=== PATIENT | male | born 1975 | race Caucasian/White ===

== ENCOUNTER 2020-03-28 12:45 | Emergency (ER) | payer OTHER, SELFPAY ==
--- NOTE | ~2020-03-28 | XR_ITS ---
EXAMINATION: XR chest 2V 03/28/2020 14:06 INDICATION: Cough for 5 weeks. Diminished breath sounds. PROCEDURE: 2 view chest COMPARISON: Comparison to multiple prior studies sequentially, with oldest reviewed study dated 04/30. FINDINGS: The lungs are clear. The cardiomediastinal silhouette is within normal limits. There are no pleural effusions. There is no pneumothorax suspected. IMPRESSION: 1: NO ACUTE CARDIOPULMONARY DISEASE. Reviewed, dictated and finalized at location A. [employer]
[2020-03-28 13:15] VITALS: BP 137/97; PULSE 79; RESP 16; TEMP 36.6; O2SAT 97
--- NOTE | 2020-03-28 13:31 | ED.URI ---
HPI - URI/Sore Throat General Chief Complaint: Upper Respiratory Infection Stated Complaint: COVID Symptoms Time Seen by Provider: 03/28/20 13:35 Source: patient and RN notes reviewed Mode of arrival: ambulatory Limitations: no limitations History of Present Illness HPI Narrative: 44 year old male who presents to [facility] care with complaints of intermittent cough with sinus drainage and congestion for 5 weeks. Patient states that he has been taking Mucinex for his symptoms. Patient states that for the past 4 days he has been having increase cough with shortness of breath and expectoration of yellow green mucous. Patient had cardiac stent done in 2916 100% on RCA and states that he hasn't been taking Plavix for a 1 1/2 months because he has not been able to see his principal accounts clerk or PCP. Patient states that he has not had a known fever but he has been having chills and sweats. Patient states that he hasn't been sleeping well due to cough. MD elicited complaint: cough, sore throat and rhinorrhea Pertinent past history: asthma (as child) and other (heart stent and tobacco abuse) Onset (ago): week(s) (5 weeks ago with increase symptoms for past 4 days) Consistency: progressively worsening Related Data Home Medications Medication Instructions Recorded Confirmed carvedilol [Coreg] 12.5 mg PO BID 03/28/20 03/28/20 clopidogrel [Plavix] 75 mg PO DAILY 03/28/20 03/28/20 omeprazole 20 mg PO DAILY 03/28/20 03/28/20 Allergies Allergy/AdvReac Type Severity Reaction Status Date / Time propoxyphene Allergy Mild Other Verified 03/28/20 13:19 Quinolones Allergy Unknown Other Verified 03/28/20 13:19 POTASSIUM CLAVULANATE Allergy Mild Other Uncoded 03/28/20 13:19 IBUPROFEN (Generic Allergy) Allergy Unknown Other Uncoded 03/28/20 13:19 SULFAMETHOXAZOLE (Generic Allergy Unknown Hives Uncoded 03/28/20 13:19 Allergy) Review of Systems Review of Systems: Narrative: CONSTITUTIONAL: Unsure if fever, positive chills, or sweats. EYES: Denies visual changes, redness, or discharge. ENT: Positive rhinorrhea, congestion, sore throat, no otalgia. CARDIOVASCULAR: Denies chest pain, palpitations, or edema. RESPIRATORY: Positive cough or dyspnea, chest hurts with cough GASTROINTESTINAL: Denies abdominal pain, nausea, vomiting, or diarrhea. GENITOURINARY: Denies dysuria or hematuria. SKIN: Denies rash or itching. MUSCULOSKELETAL: Denies back pain, joint pain, or myalgia. NEUROLOGIC: Denies headache, numbness, or weakness. PSYCHIATRIC: Denies anxiety or depression. All systems reviewed & are unremarkable except as noted in HPI and below PMFSH Past Medical History Medical History (Updated 03/28/20 @ 14:38 by Meryl Costa NP) Asthma as child CAD (coronary artery disease) Right hand fracture Surgical History Surgical History (Updated 03/28/20 @ 13:39 by Meryl Costa NP) H/O heart artery stent RCA Hx of cholecystectomy Family History Family History (Updated 03/28/20 @ 13:43 by Meryl Costa NP) Father , multiple myeloma tonsil cancer No problems noted. Mother Hypertension Social History Social History (Updated 03/28/20 @ 13:37 by Meryl Costa NP) Smoking status: Current every day smoker Tobacco type: cigarettes Alcohol intake: current Alcohol use details: social Substance use: never Living arrangements: with family Gender identity (if verbalized by the patient): Male Comments At time of signature, agree with nursing past medical, surgical, social and family history. There is no relevant family history pertinent to the presenting complaint Exam Narrative: Exam Narrative: GENERAL: Well-appearing, well-nourished, and in no acute distress. HEAD: Normocephalic, atraumatic. EYES: PERRLA and EOMI. ENT: Nares red, yellow rhinorrhea no epistaxis. Mucous membranes moist.TM's normal with good light reflex, throat red with no lesions or exudates no tonsil enlargement with nasal draina
[2020-03-28 13:37] VITALS: BP 137/97; PULSE 79; RESP 16; TEMP 36.6; O2SAT 97
== END 2020-03-28 14:33 | disposition home or self-care (01) ==
PROVIDERS: Emergency Provider Registered Nurse; PCP Physician Assistant
DX: R05 Cough (principal); J06.9 Acute upper respiratory infection, unspecified; Z20.822 Contact with and (suspected) exposure to COVID-19; F17.210 Nicotine dependence, cigarettes, uncomplicated; I25.10 Atherosclerotic heart disease of native coronary artery without angina pectoris; Z79.01 Long term (current) use of anticoagulants; Z95.5 Presence of coronary angioplasty implant and graft
CPT/HCPCS: 71046; 87081; 87426; 87804; 87880; 99203; C9803; G0463

== ENCOUNTER 2020-07-28 18:57 | Emergency (ER) | payer OTHER, SELFPAY ==
[2020-07-28 19:00] VITALS: BP 136/96; PULSE 94; RESP 18; TEMP 37.8; O2SAT 100
--- NOTE | 2020-07-28 19:06 | ED.MALEGU ---
HPI - Male Genitourinary General Chief complaint: Urogenital-Male Stated complaint: poss bladder infection Time Seen by Provider: 07/28/20 19:06 Source: patient and RN notes reviewed History of Present Illness HPI Narrative: Patient is a 45-year-old male who presents the urgent care with complaints of burning with urination and right-sided low back pain. Patient states that it started on Tuesday and seems to have worsened. Patient denies of any fever, chills, nausea, vomiting, abdominal pain. Patient has not taken anything [id number] for his symptoms. No other acute complaints. No acute distress noted. Patient aware of the plan of care. Some parts of this dictation were generated by voice recognition software and may contain typographical and/or grammatical inaccuracies. Related Data Home Medications Medication Instructions Recorded Confirmed carvedilol [Coreg] 12.5 mg PO BID 03/28/20 03/28/20 omeprazole 20 mg PO DAILY 03/28/20 03/28/20 Allergies Allergy/AdvReac Type Severity Reaction Status Date / Time propoxyphene Allergy Mild Other Verified 07/28/20 19:09 Quinolones Allergy Unknown Other Verified 07/28/20 19:09 POTASSIUM CLAVULANATE Allergy Mild Other Uncoded 07/28/20 19:09 SULFAMETHOXAZOLE (Generic Allergy Unknown Hives Uncoded 07/28/20 19:09 Allergy) Review of Systems Review of Systems: Narrative: CONSTITUTIONAL: Denies fever, chills, or sweats. EYES: Denies visual changes, redness, or discharge. ENT: Denies rhinorrhea, congestion, sore throat, or otalgia. CARDIOVASCULAR: Denies chest pain, palpitations, or edema. RESPIRATORY: Denies cough or dyspnea. GASTROINTESTINAL: Denies abdominal pain, nausea, vomiting, or diarrhea. GENITOURINARY: Reports of dysuria SKIN: Denies rash or itching. MUSCULOSKELETAL: Reports of right-sided low back pain NEUROLOGIC: Denies headache, numbness, or weakness. All other systems reviewed are negative, except as documented in HPI. [facility] Past Medical History Medical History (Updated 07/28/20 @ 19:21 by FELIPE June) Asthma as child CAD (coronary artery disease) Right hand fracture Surgical History Surgical History (Updated 03/28/20 @ 13:39 by Meryl Costa NP) H/O heart artery stent RCA Hx of cholecystectomy Family History Family History (Updated 03/28/20 @ 13:43 by Meryl Costa NP) Father , multiple myeloma tonsil cancer No problems noted. Mother Hypertension Social History Social History (Updated 03/28/20 @ 13:37 by Meryl Costa NP) Smoking status: Current every day smoker Tobacco type: cigarettes Alcohol intake: current Substance use: never Gender identity (if verbalized by the patient): Male Comments At the time of my signature, I reviewed and agree with the nursing past medical, surgical, social, and family history. There is no relevant family history pertinent to the patient complaint. Exam Narrative: Exam Narrative: GENERAL: This is a well-nourished, well-developed patient, in no apparent distress. HEAD: normocephalic, atraumatic. EYES: PERRL. Sclera clear/white. Vision is grossly intact. EARS: External ears normal NOSE: External nose normal with no obvious nasal discharge, nares without redness, no rhinorrhea. THROAT: Mucous membranes moist NECK: Neck supple CARDIOVASCULAR: Regular rate and rhythm without murmurs, gallops, or rubs. RESPIRATORY: Clear to auscultation. Breath sounds equal bilaterally. No wheezes, rales, or rhonchi. GASTROINTESTINAL: Abdomen soft, non-tender, nondistended. SKIN: warm, intact with no suspicious lesions or rash, good texture and turgor. NEURO: awake, alert, and oriented to person, place and time. There were no obvious focal neurologic abnormalities. EXTREMITIES: No clubbing, cyanosis, or edema. BACK: Mild right-sided CVA tenderness Course Vital Signs Vital signs: Vital Signs Temperature 100.1 F H 07/28/20 19:00 Pulse Rate 94 05/10
--- NOTE | 2020-07-28 19:26 | PC.NURSE ---
NO URINE CULTURE PER PROVIDER.
== END 2020-07-28 19:25 | disposition home or self-care (01) ==
PROVIDERS: Emergency Provider Nurse Practitioner Family
DX: R30.0 Dysuria (principal); F17.210 Nicotine dependence, cigarettes, uncomplicated; I25.10 Atherosclerotic heart disease of native coronary artery without angina pectoris; Z95.5 Presence of coronary angioplasty implant and graft
CPT/HCPCS: 81003; 99212; G0463

== ENCOUNTER 2021-10-18 21:02 | Emergency (ER) | payer OTHER, SELFPAY ==
[2021-10-18 21:05] VITALS: BP 100/62; PULSE 80; RESP 22; TEMP 36.4; O2SAT 95
--- NOTE | 2021-10-18 21:15 | ECG_ITS ---
Measurements Intervals [place] Rate: 78 P: 19 HI: 175 QRS: -16 QRSD: 103 T: -1 QT: 393 QTc: 449 Interpretive Statements SINUS RHYTHM LOW QRS VOLTAGE IN PRECORDIAL LEADS BORDERLINE R WAVE PROGRESSION, ANTERIOR LEADS CONSIDER INFERIOR INFARCT, AGE INDETERMINATE ABNORMAL ECG Electronically Signed On 10-18-2021 21:53:25 CDT by Andriy Agarwal D.O.
--- NOTE | 2021-10-18 21:16 | ED.WEAKNESS ---
HPI - Weakness General Chief complaint: Weakness Stated complaint: homeless diarrhea and dizzy x 2 days Time Seen by Provider: 10/18/21 21:08 History of Present Illness HPI Narrative: Patient is a 46-year-old male brought in by EMS due to near syncopal episode after a bowel movement. Patient was at a gas station using the restroom. Patient states that he has been feeling weak the past few days due to having diarrhea, loose watery, nonbloody, which he attributes to his IBS. Patient denies any syncopal episode. Patient was given IV fluids by EMS and now states that he is feeling better. Denies dizziness, headache, focal weakness or numbness, chest pain, shortness of breath, abdominal pain, nausea, vomiting, fever or chills. Related Data Home Medications Medication Instructions Recorded Confirmed carvedilol 12.5 mg tablet (Coreg) 12.5 mg PO BID 03/28/20 07/28/20 omeprazole 20 mg capsule,delayed 20 mg PO DAILY 03/28/20 07/28/20 release Allergies Allergy/AdvReac Type Severity Reaction Status Date / Time propoxyphene Allergy Mild Other Verified 10/18/21 21:05 Quinolones Allergy Unknown Other Verified 10/18/21 21:05 POTASSIUM CLAVULANATE Allergy Mild Other Uncoded 07/28/20 19:09 SULFAMETHOXAZOLE (Generic Allergy Unknown Hives Uncoded 07/28/20 19:09 Allergy) Review of Systems Review of Systems: All systems reviewed & are unremarkable except as noted in HPI and below Constitutional: Constitutional: Denies body ache(s), Denies chills, Denies excessive sweating, Denies fatigue, Denies fever(s), Denies headache(s), Denies lethargy, Denies malaise and Denies weight loss Eyes: Eyes: Denies blurry vision, Denies change in vision and Denies loss of vision ENT: Denies dizziness, Denies ear discharge, Denies headache(s), Denies lip swelling, Denies epistaxis, Denies nasal congestion, Denies neck pain, Denies throat swelling and Denies tongue swelling Cardiovascular: Cardiovascular: Denies chest pain, Denies chest pain at rest, Denies chest pain with activity, Denies diaphoresis, Denies rapid heart rate, Denies edema, Denies irregular heart rhythm, Denies lightheadedness, Denies palpitations, Denies dyspnea and Denies dyspnea on exertion Respiratory: Respiratory: Denies chest congestion, Denies cough, Denies hemoptysis, Denies dyspnea and Denies dyspnea on exertion Gastrointestinal: Gastrointestinal: Denies abdominal pain, Denies melena, Denies hematochezia, Denies nausea, Denies vomiting and Denies hematemesis Musculoskeletal: Musculoskeletal: Denies abnormal gait, Denies deformity, Denies joint swelling, Denies limited range of motion, Denies neck pain and Denies numbness Neurologic: Denies Abnormal speech present, Denies abnormal gait, Denies confusion, Denies dizziness, Denies headache(s), Denies focal weakness, Denies loss of vision, Denies numbness, Denies Other visual disturbances and Denies Sensory deficit (Neuro) Psychiatric: Psychiatric: Denies confusion, Denies depression, Denies auditory hallucinations, Denies homicidal ideation and Denies suicidal ideation Endocrine: Endocrine: Denies cold intolerance, Denies excessive sweating, Denies fatigue, Denies heat intolerance and Denies palpitations Hematologic/Lymphatic: Hematologic/Lymphatic: Denies easy bleeding and Denies easy bruising Allergic/Immunologic: Allergic/Immunologic: Denies lip swelling, Denies throat swelling and Denies tongue swelling PMFSH Past Medical History Medical History Asthma as child CAD (coronary artery disease) Right hand fracture Surgical History Surgical History H/O heart artery stent RCA Hx of cholecystectomy Family History Family History Father , multiple myeloma tonsil cancer No problems noted. Mother Hypertension Social History Social His
--- NOTE | 2021-10-18 21:20 | PC.NURSE ---
1L IV NS bolus and 1L IV LR bolus continued in ED, initiated by EMS. Full amount to be infused, per [facility] EDP Mona.
[2021-10-18 21:47] LABS: Basophils Percent Auto 0.2 % (0.2-1.2); Eosinophils Percent Auto 0.3 % (0-4.4); Hematocrit 35.7 % (42.0-52.0); Hemoglobin 12.3 g/dL (14.0-18.0); Immature Granulocyte Absolute 0.02 K/mm3 (0.00-0.031); Immature Granulocyte Percent A 0.3 % (0-0.5); Lymphocytes Absolute Auto 1.31 K/mm3 (0.9-3.2); Lymphocytes Percent Auto 21.7 % (18.3-44.2); Mean Corpuscular HGB Conc 34.5 g/dl (32-36); Mean Corpuscular Hemoglobin 32.2 pg (26-34); Mean Corpuscular Volume 93.5 fl (80-100); Mean Platelet Volume 11.5 fl (7.4-10.4); Monocytes Absolute Auto 0.4 K/mm3 (0.1-0.6); Monocytes Percent Auto 5.8 % (2.6-8.5); Neutrophils Absolute Auto 4.3 K/mm3 (1.3-6.7); Neutrophils Percent Auto 71.7 % (45.5-73.1); Platelet Count Result 123 k/mm3 (150-375); Red Blood Count 3.82 M/mm3 (4.6-6.20); Red Cell Distribution Width 13.3 % (11.5-14.5)
[2021-10-18 21:50] VITALS: BP 95/65; PULSE 78; RESP 25; O2SAT 94
[2021-10-18 21:57] LABS: Anion Gap 9 mmol/L (8-16); Blood Urea Nitrogen 8 mg/dL (9-20); Calcium 8.3 mg/dL (8.4-10.2); Carbon Dioxide 23 mmol/L (22-30); Chloride 105 mmol/L (98-107); Estimated CRCL calculation 169 ml/min; Estimated Glomerular Filt Rate > 60; Glucose 100 mg/dL (65-110); Potassium 3.4 mmol/L (3.4-5.0); Sodium 137 mmol/L (137-145)
--- NOTE | 2021-10-18 22:00 | PC.NURSE ---
22:00 cleaned wound on right knee with sterile gauze and saline, antibiotic ointment and covered with a band-aid per RN order
[2021-10-18 22:09] LABS: Troponin I < 0.012 ng/mL (0.000-0.034)
--- NOTE | 2021-10-18 22:24 | PC.NURSE ---
Pt able to ambulate with steady gait to restroom
[2021-10-18 22:25] VITALS: BP 108/71; PULSE 71; RESP 24; O2SAT 96
[2021-10-18 22:59] VITALS: BP 112/79; PULSE 73; RESP 22; O2SAT 95
--- NOTE | 2021-10-18 23:06 | PC.NURSE ---
THis RN contacted pts ex- in chart who states she will contact pts sister for ride home. PH# [phone]
== END 2021-10-18 23:08 | disposition home or self-care (01) ==
PROVIDERS: Emergency Provider Emergency Medicine
DX: R55 Syncope and collapse (principal); R19.7 Diarrhea, unspecified; J45.909 Unspecified asthma, uncomplicated; I25.10 Atherosclerotic heart disease of native coronary artery without angina pectoris; Z95.5 Presence of coronary angioplasty implant and graft; F17.210 Nicotine dependence, cigarettes, uncomplicated; R94.31 Abnormal electrocardiogram [ECG] [EKG]
CPT/HCPCS: 36415; 80048; 84484; 85025; 85055; 93005; 99284

== ENCOUNTER 2022-12-06 17:46 | Emergency (ER) | payer OTHER, SELFPAY ==
[2022-12-06 17:58] VITALS: BP 146/90; PULSE 107; RESP 16; TEMP 36.8; O2SAT 98
--- NOTE | 2022-12-06 18:24 | ED.SKABFB ---
HPI - Skin/Abscess/Foreign Bdy General Chief complaint: Skin/Abscess/Foreign Body Stated complaint: SKin Sore Time Seen by Provider: 12/06/22 18:15 Source: patient, RN notes reviewed and old records reviewed Mode of arrival: ambulatory Limitations: no limitations History of Present Illness HPI narrative: 47 year old male presents to express care with complaints of skin abscess lesions to his right leg X2.Patient has 1cm diameter scabbed region to the anterior aspect of his right knee and a 0.5cm open draining lesion above on anterior distal thigh. Patient reports that he tried to get the core out of the lesion on his thigh this morning with some purulent driange noted . Patient reports that he has history of MRSA and they usually treat him with Bactrim for it and it clears up. Patient denies any temperature chills or sweats, denies acute pain to sites. MD complaint: abscess/boil Onset (ago): day(s) (3-4) Location: RLE Severity scale (1-10): 3 Quality: aching Treatments prior to arrival: attempted to drain pus at home and OTC topical medication Related Data Allergies Allergy/AdvReac Type Severity Reaction Status Date / Time propoxyphene Allergy Mild Other Verified 10/18/21 21:05 Quinolones Allergy Unknown Other Verified 10/18/21 21:05 POTASSIUM CLAVULANATE Allergy Mild Other Uncoded 07/28/20 19:09 SULFAMETHOXAZOLE (Generic Allergy Unknown Hives Uncoded 07/28/20 19:09 Allergy) Review of Systems Review of Systems: CONSTITUTIONAL: Denies fever, chills, or sweats. CARDIOVASCULAR: Denies chest pain, palpitations, or edema. RESPIRATORY: Denies cough or dyspnea. SKIN: Reports lesions X2 to his right leg, on scabbed lesion on his knee and one above on his thigh. MUSCULOSKELETAL: Denies joint pain or myalgia. NEUROLOGIC: Denies headache, numbness, or weakness. All systems reviewed & are unremarkable except as noted in HPI and below PMFSH Past Medical History Medical History (Updated 12/07/22 @ 23:47 by Meryl Costa NP) Asthma as child CAD (coronary artery disease) MRSA infection Right hand fracture Surgical History Surgical History H/O heart artery stent RCA Hx of cholecystectomy Family History Family History Father , multiple myeloma tonsil cancer No problems noted. Mother Hypertension Social History Social History Smoking status: Current every day smoker Tobacco type: cigarettes Alcohol intake: current Alcohol use details: social Substance use: never Living arrangements: with family Gender identity (if verbalized by the patient): Male Comments At time of signature, agree with nursing past medical, surgical, social and family history. There is no relevant family history pertinent to the presenting complaint Exam Narrative: GENERAL: Well-appearing, well-nourished, and in no acute distress. HEAD: Normocephalic, atraumatic. EYES: PERRLA, conjunctivae clear, and EOMI. ENT: Mucous membranes moist. Oropharynx without edema, erythema or lesions. NECK: Supple. No lymphadenopathy CHEST: Clear to auscultation. No respiratory distress.SAO2 98% on room air HEART: Regular rate and rhythm. SKIN: Warm, dry.?1cm diameter scabbed lesion to anterior aspect right knee, 0,5 cm diameter open draining lesion on anterior distal thigh with purulent drainage, no surrounding redness to sites or induration.history of MRSA NEURO:? Alert and oriented x3. PSYCH: Normal mood and affect Course Course Emergency Course: Patient is aware of diagnosis, understands and agrees to treatment plan.? Anticipatory guidance given.? Patient agrees to follow-up as directed and is aware of reasons to seek care at the emergency department. Portions of this record may have been created with voice recognition s
== END 2022-12-06 18:56 | disposition home or self-care (01) ==
PROVIDERS: Emergency Provider Registered Nurse; PCP Internal Medicine
DX: L02.415 Cutaneous abscess of right lower limb (principal); F17.210 Nicotine dependence, cigarettes, uncomplicated; I25.10 Atherosclerotic heart disease of native coronary artery without angina pectoris; Z95.5 Presence of coronary angioplasty implant and graft; Z86.16 Personal history of COVID-19
CPT/HCPCS: 99213; G0463